=== PATIENT | male | born 1990 | race Caucasian/White ===

== ENCOUNTER 2021-01-18 10:30 | Emergency (ER) | payer OTHER ==
[~2021-01-18] VITALS: Ht 180.3 cm; Wt 70.0 kg
[2021-01-18] MEDS ORDERED: MORPHINE SULFATE 4 MG/ML CPJ (NOT FOR IM USE) IV ONE (11:00)
[2021-01-18 11:01] LABS: EOSINOPHILS % 2.7 % (0.0-5.0); HEMOGLOBIN. 15.4 g/dL (14.0-18.0); LYMPHOCYTES % 29.1 % (20.0-50.0); MEAN CORPUSCULAR HEMOGLOBIN 30.7 pg (28.0-32.0); MEAN PLATELET VOLUME 7.4 fl (7.4-10.4); MONOCYTES % 8.7 % (2.0-8.0); NEUTROPHILS % 58.5 % (40.0-76.0); PLATELET 240 x1000/uL (130-400)
[2021-01-18 11:08] LABS: CHLORIDE 106 mEq/L (98-107)
[2021-01-18] MEDS ORDERED: IOHEXOL-350 100 ML BOTTLE ONE (14:04)
[2021-01-18 15:59] VITALS: BP 132/74
== END 2021-01-18 16:58 | disposition short-term general hospital (02) ==
LOC: ER 10:30 → CANBEDREQ 18:34
DX: R07.89 Other chest pain (principal); I10 Essential (primary) hypertension
CPT/HCPCS: 36415; 71045; 71275; 80053; 83880; 84484; 85025; 93005; 99285; Q9967